=== PATIENT | female | born 1970 | race Caucasian/White ===

== ENCOUNTER 2020-11-30 13:48 | Emergency (ER) | payer BC, SELFPAY ==
[~2020-11-30] VITALS: Ht 162.6 cm; Wt 113.4 kg
[2020-11-30 13:50] VITALS: Ht 162.6 cm; Wt 113.4 kg
[2020-11-30 15:31] VITALS: BP 155/101
== END 2020-11-30 15:31 | disposition home or self-care (01) ==
LOC: ED 13:48
DX: R05 Cough (principal); R07.89 Other chest pain; Z20.828 Contact with and (suspected) exposure to other viral communicable diseases; Z98.890 Other specified postprocedural states; Z90.710 Acquired absence of both cervix and uterus